=== PATIENT | male | born 1995 | race Two or more races ===

== ENCOUNTER 2024-10-20 15:49 | Inpatient (IN) | payer OTHER ==
[~2024-10-20] VITALS: Ht 152.4 cm; Wt 88.0 kg
[~2024-10-20 15:49] MED LIST: GEMFIBROZIL600 MG; HUMALOG100 U/ML; HYOMAX0.125 MG; HumaLOG 100 UNIT/1 ML (3ML) SUBCUTANEO; INTESTINEX1 CA1 PO; LANTUS100 U/ML; Lantus 1000 U/10 ML SUBCUTANEO; Lopid PO; OMEPRAZOLE20 M1; OMEPRAZOLE20 M1 PO; PROTONIX40 MG PO; ZANTAC300 MG PO; ZOFRAN4 MG PO
[2024-10-20] MEDS ORDERED: COZAAR25 MG PO (16:21)
[2024-10-20] MEDS ORDERED: FUROsemide 20 MG/2 ML VIAL ONE (17:59)
[2024-10-20] MEDS ORDERED: FUROsemide 20 MG/2 ML VIAL IV ONE (18:00)
[2024-10-20 18:14] LABS: HEMATOCRIT 38.3 % (39.0-48.0); HEMOGLOBIN 12.6 g/dL (13-16.00); MEAN CELL VOLUME 80.2 fL (80.0-100.00); MEAN CORPUSCULAR HEMOGLOBIN 26.4 pg (27.00-32.0); MEAN CORPUSCULAR HGB CONC 32.9 g/dl (32.0-36.0); PLATELET COUNT 159 K/uL (150-450); RED BLOOD COUNT 4.77 M/uL (4.00-6.00); RED CELL DISTRIBUTION WIDTH 14.1 % (11.5-14.5)
[2024-10-20 18:42] LABS: ALBUMIN 2.2 gm/dL (3.4-5.0); BILIRUBIN TOTAL 0.66 mg/dL (0.3-1.2); CALCIUM 8.5 mg/dL (8.5-10.1); CREATININE SERUM 1.16 mg/dL (0.70-1.30); GFR 74.97; GLOBULINA 3.4 G/DL (2.4-3.5); POTASSIUM 3.93 mEq/L (3.5-5.1); TOTAL PROTEIN 5.6 gm/dL (6.4-8.2)
[2024-10-20 18:54] LABS: PH,URINE 5.5 (5.0-8.0); URINE APPEARANCE Clear; URINE BILIRRUBIN Negative (NEGATIVE); URINE BLOOD Moderate; URINE COLOR Dark Yellow; URINE KETONE Negative (NEGATIVE); URINE LEUKOCYTE Negative; URINE NITRATE Negative; URINE PROTEIN >=1000 (NEGATIVE); URINE UROBILINOGEN 0.2 E.U./dl
[2024-10-20 18:59] LABS: URINE BACTERIA 97.9 uL (0.0-1933); URINE CAST 10.45 uL (0.0-1.40); URINE EPITHELIAL CELLS 25.9 uL (0.0-38.8); URINE RBC 84.5 uL (0.0-20.8)
[2024-10-20 19:23] LABS: URINE GLUCOSE 250 MG/DL (NEGATIVE)
[2024-10-20] MEDS ORDERED: IPRATROPIUM BROMIDE 0.5 MG/2.5 ML AMPUL.NEB IH SCH (22:47)
[2024-10-20] MEDS ORDERED: FUROsemide 20 MG/2 ML VIAL IV SCH (22:49)
[2024-10-20] MEDS ORDERED: ONDANSETRON HCL 4 MG in 0.9 % SODIUM CHLORIDE 50 ML IV PRN (23:00)
[2024-10-20 23:29] LABS: ABG PH 7.425 (7.35-7.45); ABG PO2 86.6 mmHg (80-100); ABG pCO2 36.7 mmHg (35-45); BASE EXCESS -0.4 mmol/l; BICARBONATE 23.5 mmol/l (23-25); SaO2 96.8 %; Tco2 24.7 mmol/l; o2 21 %
[2024-10-20 23:30] LABS: allen test SATISFACTORY; puncture site RADIAL RIGHT
[2024-10-21] MEDS ORDERED: FUROsemide 20 MG/2 ML VIAL ONE (02:15)
[2024-10-21 03:13] LABS: D DIMER 0.57 MG/L; INR 1.09; PARTIAL THROMBOPLASTIN TIME 24.6 SECONDS (22.0-34.0); PROTHROMBIN TIME 11.8 SECONDS (9.0-11.5)
[2024-10-21 03:48] LABS: ALBUMIN 2.3 gm/dL (3.4-5.0); BILIRUBIN TOTAL 0.49 mg/dL (0.3-1.2); BILIRUBIN,CONJUGATED 0.11 mg/dL (0.0-0.2); BILIRUBIN,UNCONJUGATED 0.38 mg/dL (0.0-0.6); CHOL HDL RATIO 3.7 (0-5.0); MAGNESIUM 1.8 mg/dL (1.8-2.4); PHOSPHOROUS 4.6 mg/dL (2.5-4.9); TOTAL PROTEIN 5.2 gm/dL (6.4-8.2)
[2024-10-21 07:00] VITALS: BP 150/90; O2SAT 96
[2024-10-21] MEDS ORDERED: AMINO ACIDS/PROTEIN HYDROLYS 30 ML BLIST.PACK PO SCH ×2 (09:00→13:00)
[2024-10-21] MEDS ORDERED: FAMOTIDINE/PF 20 MG in 0.9 % SODIUM CHLORIDE 8 ML IV PUSH SCH (09:00)
[2024-10-21] MEDS ORDERED: IRBESARTAN 75 MG TABLET PO SCH (09:00)
[2024-10-21] MEDS ORDERED: INSULIN GLARGINE,HUM.REC.ANLOG 1,000 UNITS/10 ML UNITS SUBCUTANEO STA (11:58)
[2024-10-21] MEDS ORDERED: INSULIN GLARGINE,HUM.REC.ANLOG 1,000 UNITS/10 ML UNITS SUBCUTANEO ONE (12:00)
[2024-10-21] MEDS ORDERED: DEXTROSE 50 % IN WATER 0.5 G/ML DISP.SYRIN IV PRN (12:00)
[2024-10-21] MEDS ORDERED: INSULIN LISPRO 1,000 UNIT/10 ML UNITS SUBCUTANEO PRN (12:00)
[2024-10-21 12:27] LABS: TSH 2.76 uIU/mL (0.358-3.74)
[2024-10-21 15:58] VITALS: BP 130/90; O2SAT 98
[2024-10-21 18:30] VITALS: BP 138/80
[2024-10-21 18:56] VITALS: BP 138/100
[2024-10-21 19:00] VITALS: O2SAT 90
[2024-10-21] MEDS ORDERED: ALBUMIN HUMAN 100 ML VIAL IV SCH (21:00)
[2024-10-21] MEDS ORDERED: FUROsemide 40 MG/4 ML VIAL IV SCH (21:00)
[2024-10-21 22:05] LABS: MONONUCLEAR 86 %; PLEURAL FLUID APPEARANCE HAZY; PLEURAL FLUID COLOR YELLOW; POLYMORPHONUCLEAR 14 %
[2024-10-22] VITALS (8 sets, daily range): BP systolic 121–137; BP diastolic 85–100; O2SAT 91–98
[2024-10-22] MEDS ORDERED: INSULIN GLARGINE,HUM.REC.ANLOG 1,000 UNITS/10 ML UNITS SUBCUTANEO SCH (09:00)
[2024-10-22 09:56] LABS: URINE PROT QUANT 24HR 293.9 MG/DL
[2024-10-22 10:12] LABS: URINE PROT QUANT 24 HR 2792.05 MG/24HR (42-225)
[2024-10-22 10:24] LABS: CREATINE CLEARANCE 46.7 ML/MIN (97-137); CREATININE SERUM 0.96 mg/dL (0.8-1.3)
[2024-10-22] MEDS ORDERED: INSULIN LISPRO 1,000 UNIT/10 ML UNITS SUBCUTANEO SCH (12:00)
[2024-10-23 00:21] VITALS: O2SAT 96
[2024-10-23 01:29] VITALS: BP 174/107; O2SAT 98
[2024-10-23 04:45] VITALS: BP 150/100; O2SAT 96
[2024-10-23 04:48] VITALS: O2SAT 92
[2024-10-23] MEDS ORDERED: INSULIN LISPRO 1,000 UNIT/10 ML UNITS SUBCUTANEO SCH (08:00)
[2024-10-23 08:09] VITALS: BP 137/90; O2SAT 95
[2024-10-23 17:42] VITALS: BP 135/100
[2024-10-24] VITALS (8 sets, daily range): BP systolic 118–138; BP diastolic 81–95; O2SAT 90–97
[2024-10-24] MEDS ORDERED: SPIRONOLACTONE 25 MG TABLET PO SCH (09:00)
[2024-10-24 10:11] LABS: CALCIUM 8.6 mg/dL (8.5-10.1); CREATININE SERUM 0.97 mg/dL (0.70-1.30); GFR 92.16; POTASSIUM 3.66 mEq/L (3.5-5.1)
[2024-10-24] MEDS ORDERED: METOPROLOL SUCCINATE 25 MG TAB.SR.24H PO SCH (10:31)
[2024-10-24] MEDS ORDERED: FAMOtidine 20 MG TABLET PO SCH (21:00)
[2024-10-25] VITALS (7 sets, daily range): BP systolic 123–135; BP diastolic 87–90; O2SAT 88–97
[2024-10-26] VITALS (9 sets, daily range): BP systolic 111–127; BP diastolic 75–86; O2SAT 90–98
[2024-10-26 07:00] LABS: ALBUMIN 2.6 gm/dL (3.4-5.0); BILIRUBIN TOTAL 0.59 mg/dL (0.3-1.2); CALCIUM 8.2 mg/dL (8.5-10.1); GFR 88.97; GLOBULINA 2.5 G/DL (2.4-3.5); POTASSIUM 3.57 mEq/L (3.5-5.1); TOTAL PROTEIN 5.1 gm/dL (6.4-8.2)
[2024-10-26] MEDS ORDERED: METOPROLOL SUCCINATE 25 MG TAB.SR.24H PO SCH (09:00)
[2024-10-27] VITALS (9 sets, daily range): BP systolic 119–132; BP diastolic 79–87; O2SAT 90–100
[2024-10-27] MEDS ORDERED: IRBESARTAN 75 MG TABLET PO NR (14:30)
[2024-10-28 01:00] VITALS: O2SAT 90
[2024-10-28 01:28] VITALS: BP 117/79
[2024-10-28 04:57] VITALS: O2SAT 90
[2024-10-28 08:08] VITALS: BP 102/69
[2024-10-28] MEDS ORDERED: IRBESARTAN 75 MG TABLET PO SCH (09:00)
== END 2024-10-28 09:14 | disposition designated cancer center or children's hospital (05) | DRG 186 ==
LOC: ER 15:50 → SEC-K 22:53 → MEDI 22:53 → MEDJ 10-21 15:42 → MEDI 10-21 16:17
PROVIDERS: General Practice; Internal Medicine; Internal Medicine Nephrology; Preventive Medicine Public Health & General Preventive Medicine; Radiology Vascular & Interventional Radiology; ADMIT Student in an Organized Health Care Education/Training Program; ATTEND Student in an Organized Health Care Education/Training Program
PROC: BB24Y0Z Computerized Tomography (CT Scan) of Bilateral Lungs using Other Contrast, Unenhanced and Enhanced (ICD-10-PCS; principal; 2024-10-20)
PROC: BV44ZZZ Ultrasonography of Scrotum (ICD-10-PCS; 2024-10-20)
PROC: B246ZZZ Ultrasonography of Right and Left Heart (ICD-10-PCS; 2024-10-20)
PROC: BW21YZZ Computerized Tomography (CT Scan) of Abdomen and Pelvis using Other Contrast (ICD-10-PCS; 2024-10-20)
PROC: BT4JZZZ Ultrasonography of Kidneys and Bladder (ICD-10-PCS; 2024-10-21)
PROC: 0W993ZZ Drainage of Right Pleural Cavity, Percutaneous Approach (ICD-10-PCS; 2024-10-21)
PROC: 3E0F7GC Introduction of Other Therapeutic Substance into Respiratory Tract, Via Natural or Artificial Opening (ICD-10-PCS; 2024-10-21)
PROC: 4A12X4Z Monitoring of Cardiac Electrical Activity, External Approach (ICD-10-PCS; 2024-10-21)
PROC: 0W9B3ZZ Drainage of Left Pleural Cavity, Percutaneous Approach (ICD-10-PCS; 2024-10-25)
DX: J90 Pleural effusion, not elsewhere classified (principal); I50.23 Acute on chronic systolic (congestive) heart failure; N04.9 Nephrotic syndrome with unspecified morphologic changes; N17.8 Other acute kidney failure; E11.21 Type 2 diabetes mellitus with diabetic nephropathy; Z79.4 Long term (current) use of insulin; R80.8 Other proteinuria; R60.1 Generalized edema; E78.1 Pure hyperglyceridemia; I11.0 Hypertensive heart disease with heart failure

== ENCOUNTER 2025-02-08 23:11 | Inpatient (IN) | payer OTHER ==
[~2025-02-08] VITALS: Ht 177.8 cm; Wt 122.5 kg
[~2025-02-08 23:11] MED LIST changes: +COZAAR25 MG PO
[2025-02-08] MEDS ORDERED: ENTRESTO 24 MG1 EACH PO (23:33)
[2025-02-08] MEDS ORDERED: BUMETANIDE1 MG PO (23:33)
[2025-02-08] MEDS ORDERED: TOPROL XL25 M1 PO (23:34)
[2025-02-08] MEDS ORDERED: ALDACTONE25 MG PO (23:34)
[2025-02-08] MEDS ORDERED: JARDIANCE10 MG PO (23:34)
[2025-02-08] MEDS ORDERED: EZALLOR SPRINKL10 MG PO (23:34)
--- NOTE | 2025-02-09 00:04 | NUR ---
PACIENTE ALERTA Y ORIENTADO X3. REFIERE VENIR POR MAREOS, VOMITOS X5 Y ESCALOFRIOS DESDE HOY. PACIENTE CON BP MANUAL AL MOMENTO DEL TRIAGE EN 80/60, SE REALIZA EKG Y SE PRESENTA A MD DR JOYNER QUIEN REFIERE UBICAR EN AREA DE CHEST PAIN. SE CONECTA PACIENTE A MONITOR CARDIACO Y OXIMETRIA DE PULSO CONTINUA.
[2025-02-09] MEDS ORDERED: FAMOTIDINE/PF 20 MG/2 ML VIAL IV PUSH STA (00:22)
[2025-02-09] MEDS ORDERED: 0.9 % SODIUM CHLORIDE 1,000 ML IV ONE ×2 (00:30→02:30)
--- NOTE | 2025-02-09 00:33 | NUR ---
SE ORIENTA PTE SOBRE TRATAMIENTO MEDICO SE CONECTA A MONITOR CARDIACO Y OXIMETRIA SE CANALIZA LOU DE EDEMA NI ERITEMA SE ROLAND MUESTRAS DE JU BAJO MEDIDAS ACEPTICAS ADECUADAS PTE EN ESPERA DE RX
[2025-02-09 00:42] LABS: BASO % 0.2 % (0.1-1.2); EOS # 0.00 (0.04-0.54); EOS % 0.0 % (0.7-7.0); LYMPH # 0.53 (1.18-3.74); LYMPH % 4.7 % (19.3-53.1); MEAN PLATELET VOLUME 11.10 fl (9.4-12.4); MONO # 0.59 (0.24-0.82); MONO % 5.2 % (4.7-12.5); NEUT # 10.05 (1.56-6.13); NEUT % 89.2 % (34.0-71.1); RED CELL DISTRIBUTION WIDTH 13.4 % (11.6-14.4)
[2025-02-09 01:05] LABS: ALT/SGPT 18.0 U/L (12-78); AST/SGOT 17.0 U/L (15-37); BILIRUBIN TOTAL 1.35 mg/dL (0.3-1.2); BUN CREA RATIO 21.0 (7.0-25.0); CREATININE SERUM 1.46 mg/dL (0.70-1.30); GFR 57.49; GLOBULINA 3.1 G/DL (2.4-3.5); GLUCOSE FASTING 109.0 mg/dL (65-100); OSMOLALITY SERUM 282.0 MOSM/KG (275-295)
--- NOTE | 2025-02-09 01:12 | NUR ---
DEXTRO 101 MG/DL
[2025-02-09 03:05] LABS: COVID-19 AG NEGATIVE (NEGATIVE)
[2025-02-09] MEDS ORDERED: ACETAMINOPHEN 500 MG GEL..CAP PO STA (04:53)
[2025-02-09 05:17] LABS: URINE APPEARANCE Clear; URINE BILIRRUBIN Negative (NEGATIVE); URINE BLOOD Large; URINE COLOR Yellow; URINE KETONE Negative (NEGATIVE); URINE LEUKOCYTE Negative; URINE NITRATE Negative; URINE UROBILINOGEN 0.2 E.U./dl
[2025-02-09 05:21] LABS: URINE BACTERIA 178.8 uL (0.0-1933); URINE CAST 1.75 uL (0.0-1.40); URINE EPITHELIAL CELLS 20.2 uL (0.0-38.8); URINE RBC 68.1 uL (0.0-20.8); URINE WBC 19.0 uL (0.0-23.2)
[2025-02-09 05:36] LABS: URINE GLUCOSE >=1000 MG/DL (NEGATIVE); URINE PROTEIN 300 (NEGATIVE)
[2025-02-09] MEDS ORDERED: ACETAMINOPHEN 500 MG GEL..CAP PO PRN ×2 (06:45→16:45)
--- NOTE | 2025-02-09 07:00 | NUR ---
SE RECIBE PTE ALERTA Y ORIENTADO X3 EN COMPANIA DE FAMILIAR ACOSTADO EN CAMA BAJA Y BARANDAS ELEVADAS POR JULIAN SEGURIDAD BAJO CUIDADO DE RN BRIJESH EN UNIDAD DE CHEST PAIN. PTE CON EXTREMIDADES SUPERIOIRES LIBRES DE EDEMA Y ERITEM CON H/L EN MANO IZQUIERDA. EL MISMO CONECTADO A MONITOR CARDIACO Y OXYMETRIA VITALES ESTABLES GEORGE JULIAN CONDICION PERMITE. ABDOMEN RETRAIBLE AL TACTO CON PERISTALSIS PRESENTE. ORINANDO ESPONTANEO Y CON EXTREMIDADES INFERIOIRES LIBRES DE EDEMA Y ERITEMA.
[2025-02-09 08:53] LABS: BASO % 0.2 % (0.1-1.2); EOS # 0.00 (0.04-0.54); EOS % 0.0 % (0.7-7.0); LYMPH # 0.63 (1.18-3.74); LYMPH % 11.3 % (19.3-53.1); MEAN PLATELET VOLUME 11.20 fl (9.4-12.4); MONO # 0.24 (0.24-0.82); MONO % 4.3 % (4.7-12.5); NEUT # 4.67 (1.56-6.13); NEUT % 83.3 % (34.0-71.1); RED CELL DISTRIBUTION WIDTH 13.5 % (11.6-14.4)
[2025-02-09 09:18] LABS: ALT/SGPT 17.0 U/L (12-78); AST/SGOT 14.0 U/L (15-37); BILIRUBIN TOTAL 1.04 mg/dL (0.3-1.2); BUN CREA RATIO 20.0 (7.0-25.0); CREATININE SERUM 1.55 mg/dL (0.70-1.30); GFR 53.66; GLOBULINA 2.6 G/DL (2.4-3.5); GLUCOSE FASTING 141.0 mg/dL (65-100); OSMOLALITY SERUM 283.0 MOSM/KG (275-295)
[2025-02-09 11:21] LABS: ABG PH 7.462 (7.35-7.45); ABG PO2 80.5 mmHg (80-100); BICARBONATE 25.5 mmol/l (23-25)
[2025-02-09] MEDS ORDERED: ONDANSETRON HCL 2 MG/ML VIAL IV STA (11:30)
[2025-02-09] MEDS ORDERED: DIPHENHYDRAMINE HCL 50 MG/ML VIAL 1ML IV ONE (11:45)
[2025-02-09 12:21] LABS: o2 21 %
[2025-02-09] MEDS ORDERED: ACETAMINOPHEN 500 MG GEL..CAP PO ONE ×2 (12:48→20:56)
--- NOTE | 2025-02-09 15:00 | NUR ---
SE RECIBE PTE ALERTA Y ORIENTADO X3. EN CAMA BAJA CON BARANDAS ELEVADAS BAJO CUIDADO DE RN KEYSHAWN EN UNIDAD DE CHEST PAIN. PTE CON EXTREMIDADES SUPERIORES LIBRES DE EDEMA Y ERITEM COIN ANGIO #20 EN LA CON 0.9 NSS BAJANDO A 60ML/HR. PTE CONECTADO A MONITOR CARDIACO Y OXYMETRIA VITALES ESTABLES. ABDOMEN RETRAIBLE AL TACTO CON PERISTALSIS PRESENTE. ORINANDO ESPONTANEO Y CON EXTREMIDADES INFERIORES LIBRES DE EDEMA Y ERITEMA.
[2025-02-09 16:02] VITALS: BP 111/53
[2025-02-09] MEDS ORDERED: CEFTRIAXONE SODIUM 2,000 MG in 0.9 % SODIUM CHLORIDE 100 ML IV SCH (16:34)
[2025-02-09] MEDS ORDERED: ONDANSETRON HCL 4 MG in 0.9 % SODIUM CHLORIDE 50 ML IV PRN (16:45)
[2025-02-09] MEDS ORDERED: INSULIN LISPRO 1,000 UNIT/10 ML UNITS SUBCUTANEO PRN (16:45)
[2025-02-09] MEDS ORDERED: DEXTROSE 50 % IN WATER 0.5 G/ML DISP.SYRIN IV PRN (16:45)
[2025-02-09] MEDS ORDERED: 0.9 % SODIUM CHLORIDE 1,000 ML IV SCH (16:45)
[2025-02-09 18:05] LABS: ABG PH 7.420 (7.35-7.45)
[2025-02-09 18:06] LABS: BICARBONATE 27.7 mmol/l (23-25); o2 21 %
[2025-02-09 18:07] LABS: ABG PO2 78.5 mmHg (80-100)
[2025-02-09] MEDS ORDERED: CEFTRIAXONE SODIUM 2,000 MG VIAL ONE (18:15)
[2025-02-09 19:40] LABS: INR 1.25
[2025-02-09 20:54] VITALS: BP 153/82; O2SAT 97
[2025-02-09 23:46] VITALS: BP 125/68; O2SAT 96
[2025-02-10] VITALS (17 sets, daily range): BP systolic 118–148; BP diastolic 56–91; O2SAT 95–100
[2025-02-10] MEDS ORDERED: METOPROLOL SUCCINATE 25 MG TAB.SR.24H PO SCH ×2 (01:57→21:00)
[2025-02-10] MEDS ORDERED: ENOXAPARIN SODIUM 40 MG/0.4 ML SYRINGE SUBCUTANEO SCH (09:00)
[2025-02-11] VITALS (13 sets, daily range): BP systolic 127–155; BP diastolic 75–96; O2SAT 95–100
[2025-02-11 06:04] LABS: ALT/SGPT 16.0 U/L (12-78); AST/SGOT 14.0 U/L (15-37); BILIRUBIN TOTAL 0.61 mg/dL (0.3-1.2); BUN CREA RATIO 28.0 (7.0-25.0); CREATININE SERUM 1.05 mg/dL (0.70-1.30); GFR 84.1; GLOBULINA 3.2 G/DL (2.4-3.5); GLUCOSE FASTING 196.0 mg/dL (65-100); OSMOLALITY SERUM 285.0 MOSM/KG (275-295)
[2025-02-11] MEDS ORDERED: ENOXAPARIN SODIUM 40 MG/0.4 ML SYRINGE SUBCUTANEO ONE (08:00)
[2025-02-11] MEDS ORDERED: LACTOBACILLUS ACIDOPHILUS 1 CAP CAP PO ONE (08:00)
[2025-02-11] MEDS ORDERED: LACTOBACILLUS ACIDOPHILUS 1 CAP CAP PO SCH (09:00)
[2025-02-11] MEDS ORDERED: INSULIN LISPRO 1,000 UNIT/10 ML UNITS SUBCUTANEO ONE (14:38)
[2025-02-11] MEDS ORDERED: SACUBITRIL/VALSARTAN 1 EACH TABLET PO SCH (17:00)
[2025-02-12] VITALS (9 sets, daily range): BP systolic 130–145; BP diastolic 80–85; O2SAT 95–100
[2025-02-12] MEDS ORDERED: SPIRONOLACTONE 25 MG TABLET PO SCH (09:00)
[2025-02-12] MEDS ORDERED: EMPAGLIFLOZIN 10 MG TABLET PO SCH (09:00)
[2025-02-12 10:43] LABS: BASO % 0.3 % (0.1-1.2); EOS # 0.03 (0.04-0.54); EOS % 0.8 % (0.7-7.0); LYMPH # 0.85 (1.18-3.74); LYMPH % 22.3 % (19.3-53.1); MEAN PLATELET VOLUME 10.80 fl (9.4-12.4); MONO # 0.29 (0.24-0.82); MONO % 7.6 % (4.7-12.5); NEUT # 2.60 (1.56-6.13); NEUT % 68.2 % (34.0-71.1); RED CELL DISTRIBUTION WIDTH 12.7 % (11.6-14.4)
[2025-02-12 11:10] LABS: BUN CREA RATIO 34.0 (7.0-25.0); CREATININE SERUM 0.79 mg/dL (0.70-1.30); GFR 116.79; OSMOLALITY SERUM 290.0 MOSM/KG (275-295)
[2025-02-12 11:15] LABS: GLUCOSE FASTING 258.0 mg/dL (65-100)
[2025-02-13 00:09] VITALS: O2SAT 99
[2025-02-13 00:53] VITALS: BP 138/90; O2SAT 97
[2025-02-13 05:30] VITALS: O2SAT 99
[2025-02-13 10:14] VITALS: BP 145/90; O2SAT 97
[2025-02-13 10:48] VITALS: O2SAT 89
== END 2025-02-13 11:06 | disposition home or self-care (01) | DRG 922 ==
LOC: ER 23:25 → ICU-2 02-09 16:54 → SEC-K 02-11 11:24 → MEDJ 02-11 17:21
PROVIDERS: Emergency Medicine; General Practice; Internal Medicine; ADMIT Student in an Organized Health Care Education/Training Program; ATTEND Student in an Organized Health Care Education/Training Program
PROC: B24BYZZ Ultrasonography of Heart with Aorta using Other Contrast (ICD-10-PCS; principal; 2025-02-09)
PROC: B54BZZZ Ultrasonography of Right Lower Extremity Veins (ICD-10-PCS; 2025-02-11)
DX: T78.1XXA Other adverse food reactions, not elsewhere classified, initial encounter (principal); A41.9 Sepsis, unspecified organism; R65.10 Systemic inflammatory response syndrome (SIRS) of non-infectious origin without acute organ dysfunction; N17.9 Acute kidney failure, unspecified; L23.6 Allergic contact dermatitis due to food in contact with the skin; I48.91 Unspecified atrial fibrillation; I50.9 Heart failure, unspecified; Z79.4 Long term (current) use of insulin; I11.0 Hypertensive heart disease with heart failure; E10.9 Type 1 diabetes mellitus without complications